=== PATIENT | male | born 1960 | race Caucasian/White ===

== ENCOUNTER 2022-06-02 12:35 | Emergency (ER) | payer OTHER ==
[~2022-06-02] VITALS: Ht 180.3 cm; Wt 122.5 kg
[2022-06-02] MEDS ORDERED: NIFEDIPINE ER30 MG PO (13:01)
[2022-06-02] MEDS ORDERED: CANDESARTAN CIL16 MG PO (13:01)
[2022-06-02] MEDS ORDERED: GLIPIZIDE XL5 MG PO (13:02)
[2022-06-02] MEDS ORDERED: SYMDEKO PO (13:03)
== END 2022-06-02 18:18 | disposition home or self-care (01) ==
LOC: ER 12:35
DX: R06.02 Shortness of breath (principal)